=== PATIENT | male | born 1980 | race Caucasian/White ===

== ENCOUNTER 2017-05-08 17:31 | Emergency (ER) | payer OTHER ==
[2017-05-08] MEDS: HYDROCODONE/APAP (5/325) TAB PO (21:53)
== END 2017-05-08 23:55 | disposition home or self-care (01) ==
LOC: FTE 17:31
DX: S51.012A Laceration without foreign body of left elbow, initial encounter (principal); F17.210 Nicotine dependence, cigarettes, uncomplicated; W11.XXXA Fall on and from ladder, initial encounter; Y92.9 Unspecified place or not applicable
CPT/HCPCS: 12002; 73080-LT; 99283-25

== ENCOUNTER 2017-05-18 09:50 | Emergency (ER) | payer OTHER | END 2017-05-18 11:57 | disposition home or self-care (01) | LOC: FTE 09:50 | DX: L03.114 Cellulitis of left upper limb (principal); Z87.891 Personal history of nicotine dependence | CPT/HCPCS: 99283; Z7502 ==